=== PATIENT | male | born 1990 | race Caucasian/White ===

== ENCOUNTER → 2023-04-27 09:32 | Outpatient (CLI) | payer OTHER, SELFPAY ==
--- NOTE | ~2023-04-27 | XR_ITS ---
AP view of the pelvis Clinical history: Pain Findings: No acute fracture or dislocation is seen. Osseous alignment is anatomic. Bilateral hip and SI joint spaces are preserved. Soft tissues are unremarkable. Impression: No significant abnormality is seen. Reviewed, dictated and finalized at location M. Impression: No significant abnormality is seen.
--- NOTE | ~2023-04-27 | XR_ITS ---
Lumbosacral Spine: AP, oblique, and lateral views Clinical History: Pain Findings: The normal lordotic curve is maintained. The vertebral bodies and posterior elements are i ntact. The intervertebral disc spaces are preserved. There is mild facet arthropathy at L4-L5 and L5 -S1. The sacroiliac joints are normally outlined. Impression: Mild facet arthropathy at L4-L5 and L5-S1. Reviewed, dictated and finalized at location . Impression: Mild facet arthropathy at L4-L5 and L5-S1.
== END ==
PROVIDERS: Visit Provider Chiropractor
DX: M25.551 Pain in right hip (principal); M54.50 Low back pain, unspecified
CPT/HCPCS: 72110; 72170